=== PATIENT | female | born 1940 | race Caucasian/White ===

== ENCOUNTER → 2017-01-12 | Outpatient (CLI) | payer MEDICARE ==
[~2017-01-12] MED LIST: ALBU90AE PO; ALPR0.254 PO; GABA400C PO; HYDR-3241 PO; METF500T4 PO; TIZA4TAB PO
[2017-01-12 12:26] LABS: PATH.CAST-FLAG NOT PRESENT; SPERM-FLAG NOT PRESENT; SRC-FLAG NOT PRESENT; XTAL-FLAG NOT PRESENT; YLC-FLAG NOT PRESENT
[2017-01-12 12:37] LABS: BLOOD UREA NITROGEN 23 mg/dL (7-18)
[2017-01-12 12:40] LABS: ASPARTATE AMINO TRANSFERASE 18 U/L (15-37)
== END | disposition home or self-care (01) ==
LOC: STAR 11:00
PROVIDERS: ATTEND Orthopaedic Surgery
DX: Z01.818 Encounter for other preprocedural examination (principal); M17.12 Unilateral primary osteoarthritis, left knee
CPT/HCPCS: 36415; 80053; 81001; 85025; 87081; 87086; 87147; 93005

== ENCOUNTER 2017-01-17 07:30 | Inpatient (IN) | payer MEDICARE ==
[~2017-01-17] VITALS: Ht 152.4 cm; Wt 69.9 kg
[~2017-01-17 07:30] MED LIST changes: +BACITRACIN 50,000 UNIT ONE; +BUPIVACAINE/PF-EPI 0.5% 1:200K ONE; +CEFAZOLIN 1,000 MG ONE; +DEXAMETHASONE 4 MG/ML, 1ML ONE; +EPINEPHRINE 1 MG/ML, 1ML ONE; +FENTANYL PF 250 MCG/5ML ONE; +KETOROLAC 60 MG/2 ML ONE; +LABETALOL 5MG/ML, 20ML ONE; +MIDAZOLAM 1 MG/ML, 2ML ONE; +ONDANSETRON 2MG/ML, 2ML ONE; +PROPOFOL 10 MG/ML, 20ML ONE; +ROCURONIUM 10 MG/ML ONE; +ROPIvacaine/PF 0.2%, 20 ML ONE; +SODIUM CHLORIDE 0.9% 50 ML ONE; +TRANEXAMIC ACID 100 MG/ML, 10ML ONE; +VANCOMYCIN 1,000 MG ONE; +VANCOMYCIN PMX 1GM/200ML 200 ML IVPB SCH; +morphine SULFATE/PF 1 MG/ML, 10ML ONE
[2017-01-17] MEDS ORDERED: FENTANYL PF 100 MCG/2ML ONE (09:55)
[2017-01-17] MEDS ORDERED: DIAZEPAM 5 MG/ML, 2ML ONE (09:55)
[2017-01-17] MEDS ORDERED: OXYcodone 5 MG/5 ML ORAL.SOL UDC ONE (09:55)
[2017-01-17] MEDS: FENTANYL PF 100 MCG/2ML IV PRN ×2 (10:10→10:30)
[2017-01-17] MEDS ORDERED: ALBUTEROL SULFATE 2.5 MG/3 ML NPPB PRN (12:00)
[2017-01-17] MEDS ORDERED: ONDANSETRON 2MG/ML, 2ML IV PRN (12:00)
[2017-01-17] MEDS ORDERED: DIAZEPAM 5 MG/ML, 2ML IVPush PRN (12:00)
[2017-01-17] MEDS ORDERED: MEPERIDINE/PF 25MG/0.5ML ONE ×2 (12:17→16:22)
[2017-01-17] MEDS: MEPERIDINE/PF 50 MG/ML IV PRN ×2 (12:21→16:25)
[2017-01-17] MEDS: D5%-0.45% NACL 1,000 ML IV SCH (12:50)
[2017-01-17] MEDS ORDERED: OXYcodone/APAP 5/325MG TABLET ONE ×2 (16:24→22:17)
[2017-01-17] MEDS: OXYcodone/APAP 5/325MG TABLET PO PRN ×2 (16:25→22:35)
[2017-01-17] MEDS: INSULIN ASPART 100 UNITS/ML, 3ML PEN LOW DOSE SS SQ-INSULIN SCH ×2 (17:45→21:00)
[2017-01-17] MEDS ORDERED: WARFARIN 10 MG TABLET PO-COUM ONE (18:00)
[2017-01-17] MEDS: METOPROLOL TARTRATE 25 MG TABLET PO SCH (18:00)
[2017-01-17] MEDS: GABAPENTIN 400 MG CAPSULE PO PRN (22:35)
[2017-01-18] MEDS ORDERED: OXYcodone/APAP 5/325MG TABLET ONE ×2 (02:50→08:19)
[2017-01-18] MEDS: OXYcodone/APAP 5/325MG TABLET PO PRN ×4 (02:50→22:02)
[2017-01-18] MEDS: METOPROLOL TARTRATE 25 MG TABLET PO SCH ×3 (05:00→17:55)
[2017-01-18 07:09] VITALS: BP 106/55
[2017-01-18] MEDS: INSULIN ASPART 100 UNITS/ML, 3ML PEN LOW DOSE SS SQ-INSULIN SCH ×3 (08:00→21:27)
[2017-01-18] MEDS: GABAPENTIN 400 MG CAPSULE PO PRN ×3 (10:00→22:02)
[2017-01-18] MEDS ORDERED: MEPERIDINE/PF 25MG/0.5ML ONE ×2 (11:43→12:10)
[2017-01-18] MEDS: MEPERIDINE/PF 50 MG/ML IV PRN (12:15)
[2017-01-18 12:27] VITALS: BP 123/76
[2017-01-18] MEDS ORDERED: WARFARIN 10 MG TABLET PO-COUM ONE (18:00)
[2017-01-18] MEDS ORDERED: WARFARIN 10 MG TABLET PO-COUM SCH (18:00)
[2017-01-18 20:00] VITALS: BP 127/76
[2017-01-18] MEDS: D5%-0.45% NACL 1,000 ML IV SCH (20:00)
[2017-01-18] MEDS: TIZANIDINE 4MG TABLET PO SCH (22:02)
[2017-01-19 02:00] VITALS: BP 134/75
[2017-01-19] MEDS: OXYcodone/APAP 5/325MG TABLET PO PRN ×3 (03:56→12:10)
[2017-01-19] MEDS: METOPROLOL TARTRATE 25 MG TABLET PO SCH (05:55)
[2017-01-19 07:19] VITALS: BP 141/76
[2017-01-19] MEDS: D5%-0.45% NACL 1,000 ML IV SCH ×2 (08:00→12:00)
[2017-01-19] MEDS: TIZANIDINE 4MG TABLET PO SCH ×2 (08:07→15:41)
[2017-01-19] MEDS ORDERED: OXYcodone 5 MG/5 ML ORAL.SOL UDC PO PRN (10:00)
[2017-01-19] MEDS ORDERED: DIAZEPAM 5 MG/ML, 2ML IV ONE (10:00)
[2017-01-19] MEDS: INSULIN ASPART 100 UNITS/ML, 3ML PEN LOW DOSE SS SQ-INSULIN SCH (12:00)
[2017-01-19 12:11] VITALS: BP 127/82
[2017-01-19] MEDS ORDERED: LACTATED RINGERS 1,000 ML IV SCH (12:53)
[2017-01-19] MEDS ORDERED: VANCOMYCIN PMX 1GM/200ML 200 ML IV ONE (13:00)
[2017-01-19 17:26] LABS: ASPARTATE AMINO TRANSFERASE 16 U/L (15-37); BLOOD UREA NITROGEN 19 mg/dL (7-18)
== END 2017-01-19 17:58 | disposition home or self-care (01) | DRG 470 ==
LOC: ORIP 07:30 → 4WST 11:33
PROVIDERS: ADMIT Orthopaedic Surgery; ATTEND Orthopaedic Surgery
PROC: 0SRD0J9 Replacement of Left Knee Joint with Synthetic Substitute, Cemented, Open Approach (ICD-10-PCS; principal; 2017-01-17 07:30)
DX: M17.12 Unilateral primary osteoarthritis, left knee (principal); T88.6XXA Anaphylactic reaction due to adverse effect of correct drug or medicament properly administered, initial encounter; E11.42 Type 2 diabetes mellitus with diabetic polyneuropathy; I10 Essential (primary) hypertension; J44.9 Chronic obstructive pulmonary disease, unspecified; I49.9 Cardiac arrhythmia, unspecified; T36.0X5A Adverse effect of penicillins, initial encounter; Y84.8 Other medical procedures as the cause of abnormal reaction of the patient, or of later complication, without mention of misadventure at the time of the procedure; Z87.891 Personal history of nicotine dependence; Y92.89 Other specified places as the place of occurrence of the external cause; Z88.6 Allergy status to analgesic agent; Z91.040 Latex allergy status
CPT/HCPCS: 36415; 80053; 81003; 82962; 85025; 85610; 93005; C1713; J0171; J0690; J1100; J1815; J1885; J2175; J2250; J2274; J2405; J2704; J2795; J3010; J3360; J3370; C1776; J7120